=== PATIENT | male | born 1955 | race Two or more races ===

== ENCOUNTER → 2016-10-29 | Outpatient (CLI) | payer OTHER, MEDICAID | LOC: CIMAGING 17:00 | PROVIDERS: ATTEND Family Medicine | DX: R10.12 Left upper quadrant pain (principal); R31.9 Hematuria, unspecified | CPT/HCPCS: 74022-PO; 80053-PO; 85025-PO ==

== ENCOUNTER 2017-10-24 00:02 | Emergency (ER) | payer OTHER, MEDICAID ==
--- NOTE | 2017-10-24 00:32 | EDPHY ---
H & P Time Seen by Provider: 10/24/17 00:16 HPI/ROS: CHIEF COMPLAINT: [tooth ache] HISTORY OF PRESENT ILLNESS: [ ] P Q R S T Discharge Trismus Trauma REVIEW OF SYSTEMS: Gen: No fevers or chills. Respiratory: No cough, no dyspnea. Smoking Status: Never smoked Physical Exam: General: Well-developed well-nourished. Nontoxic. HEENT: Membranes moist. No foul odor. There is no trismus. There is no drainage within the mouth nor pointing at the alveolar ridge. . There is [no discernible ] [moderate] [extensive] dental decay. Submandibular adenopathy [is] [is not] noted. Constitutional: Initial Vital Signs Temperature (C) 36.9 C 10/24/17 00:05 Heart Rate 59 L 10/24/17 00:05 Respiratory Rate 16 10/24/17 00:05 Blood Pressure 161/100 H 10/24/17 00:05 O2 Sat (%) 96 10/24/17 00:05 O2 Delivery Mode Room Air Allergies/Adverse Reactions: No Known Allergies Allergy (Verified 10/24/17 00:21) Home Medications: Medication Instructions Recorded Aspirin [Aspir 81] 06/20/12 Lisinopril/Hctz 20/12.5MG 06/20/12 [Zestoretic/Prinzide 20/12.5MG (*)] Omeprazole 40 mg PO 06/20/12 AMOXICILLIN 10/24/17 Atorvastatin Calcium 10/24/17 Hydrocodone-Acetamin 2.5-325 10/24/17
[2017-10-24] MEDS ORDERED: NS 1,000 ML IV ONE (00:52)
[2017-10-24] MEDS ORDERED: OXYCODONE/APAP 5/325 TAB PO ONE (00:55)
[2017-10-24] MEDS ORDERED: ONDANSETRON 4 MG/2 ML VIAL IVP ONE (00:55)
--- NOTE | 2017-10-24 01:07 | CPEKG ---
Heart Rate: 69 RR Interval: 870 P-R Interval: 208 QRSD Interval: 78 QT Interval: 364 QTC Interval: 390 P [place]: 51 QRS [place]: 52 T Wave [place]: 32 EKG Severity - NORMAL ECG - EKG Impression: SINUS RHYTHM Electronically Signed By: Reji Thurman 24-Oct-2017 02:00:08
--- NOTE | 2017-10-24 01:29 | EDPHY ---
H & P Stated Complaint: Pain R side jaw area, has temp crown. Weakness with low BP. Time Seen by Provider: 10/24/17 00:16 HPI/ROS: CHIEF COMPLAINT: Tooth ache, dental pain, and weakness with hypotension. HISTORY OF PRESENT ILLNESS: This is a 62-year-old male with known underlying borderline diabetes with upon chart review his A1c will run between 6.1 is 6.3. Furthermore, he has had history of mild anemia with a hemoglobin approximately 13 for the last 5 years. He is here because his right cheek and facial area is becoming worse instead of better despite seen a dentist and he feels generally unwell and weak. Approximately 3 weeks ago he started having right upper dental pain. Was seen by a dentist and had a 2 stage crown placed. However with a crown placed he started feeling quite a bit worse and had more pain. Thus the crown was removed , a temporary filling was placed, and he was started on antibiotics as of October 19, amoxicillin. Also, since the been on hydrocodone 1 tablet every 6 hr. Furthermore he is taking his ibuprofen 400 mg daily. On these meds he is stomach is felt unwell and has no appetite. Approximately midnight on the , he felt particularly weak and had a lay on the floor. His checked his blood pressure and it was 85. He had no associated chest pain or shortness of breath diaphoresis vomiting hematemesis or bright red blood per rectum. This subsided over period of time and thus, he has been going along for the last 2 days with overall decreased intake of both p.o. solids and liquid. Discharge none Trismus none Trauma no P worse with cold or hot liquids or air Q Sharp R to the cheek on the L radiating along the mandible S moderate to severe, poor sleep T started 3 weeks ago, worse this week, no better on Amoxicillin. Pt queried and denies: No prior history of substance abuse, family history of substance abuse or current or prior psychiatric history. [place] Prescription Drug Monitoring Program checked: The only entry was that of October 19 for hydrocodone 16. He has 5 left. REVIEW OF SYSTEMS: Constitutional: No fever, no chills. Eyes: No discharge No diplopia ENT: No sore throat. Cardiovascular: No chest pain, no palpitations. Respiratory: No cough, shortness of breath, or wheezing. Gastrointestinal: No nausea vomiting or diarrhea. No abdominal pain. Genitourinary: No hematuria or frequency. Musculoskeletal: No back pain. Skin: No rashes. Neurological: No headache. 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 - Family History Significant Family History: No pertinent family hx - Social History Smoking Status: Never smoked Alcohol Use: None Drug Use: None - Physical Exam Exam: General Appearance: Alert, no distress. Afebrile. Normal phonation. No respiratory distress. He appears weak Eyes: Pupils equal and round no pallor or injection. No icterus ENT, Mouth: Mucous membranes slightly dry Pharynx without erythema or exudate. HEENT: Membranes moist. No foul odor. There is no trismus. There is no drainage within the mouth nor pointing at the alveolar ridge. . There is moderate dental decay. Submandibular adenopathy is noted, on the left. There is some mild soft tissue swelling present over the zygoma. The extraocular muscles are intact he reports no diplopia. There is a cap over the 1st molar on the left upper. There is no pointing to the alveolar ridge nor erythema Neck: No adenopathy. Supple. No JVD. Trachea in midline. Respiratory: There are no retractions, lungs are clear to auscultation. Chest wall: Nontender to palpation. No crepitus. Cardiovascular: Regular rate and rhythm, no murmur Abdomen: Soft and nontender, no masses, bowel sounds normal. Neurological: Ox3. No motor weakness. Sensation intact. Gait nl. Skin: Warm and dry, no rashes. Musculoskeletal: No joint swelling. Extremities: No edema. Homans sign negative. No cords. Psychiatric: Normal affect. Patient is oriented X 3. There is no agitation Constitutional: Initial Vital Signs Temperature (C) 36.9 C 10/24/17 00:05 Heart Rate 59 L 10/24/17 00:05 Respiratory Rate 16 10/24/17 00:05 Blood Pressure 161/100 H 10/24/17 00:05 O2 Sat (%) 96 10/24/17 00:05 O2 Delivery Mode Room Air Allergies/Adverse Reactions: No Known Allergies Allergy (Verified 10/24/17 00:21) Home Medications: Medication Instructions Recorded Aspirin [Aspir 81] 06/20/12 Lisinopril/Hctz 20/12.5MG 06/20/12 [Zestoretic/Prinzide 20/12.5MG (*)] Omeprazole 40 mg PO 06/20/12 AMOXICILLIN 10/24/17 Atorvastatin Calcium 10/24/17 Clindamycin HCl [Clindamycin] 300 mg PO QID #40 cap 10/24/17 Docusate Sodium [Colace 100 MG (*)] 100 mg PO BID #20 cap 10/24/17 Hydrocodone-Acetamin 2.5-325 10/24/17 Ibuprofen 600 mg PO TID #45 capsule 10/24/17 oxyCODONE HCL/ACETAMINOPHEN 1 - 2 each PO Q6 PRN #20 tablet 10/24/17 [Percocet 5-325 mg Tablet] Medical Decision Making - Diagnostics EKG Interpretation: EKG interpretation: See trace master for official reading. The EKG is sinus rhythm with a heart rate of 69 with no signs of ischemic changes with normal ST and T segments. ED Course/Re-evaluation: I suspect this pain is quite dehydrated from the [place] of the hydrocodone in induced nausea and anorexia as well as general feeling on well and not taking fluids like he should. I also suspect that his borderline diabetes is more problematic at this time due to stress with his sugar ultimately at 170 tonight , thus he is having a bit of diuresis that fashion. Thus, he was started on IV fluids for rehydration purposes. His EKG did not show any signs of ischemic changes. Electrolytes were stable as well as renal function however is borderline anemia in the past is now worse and deserves explanation. Thus, we will go ahead and get a formal CBC to get any idea of indices with subsequent further workup by his PCP. The stool guaiac suggests He was given Zofran 4 mg IVP for his Nausea/Anorexia. He received NS for volume deletion. He received Percocet 2 tabs for the pain. However, he was still in a lot of pain despite Percocet 2 tablets p.o.. We start him on the clindamycin here. I am afraid it is going to take a while for these medicines to catch up to his underlying process as well as they may need to have that tooth uncovered. He is to call the dentist tomorrow Wednesday morning. He will be switched to: Clindamycin Percocet And I will add: Valentine Differential Diagnosis: Diagnostic considerations include, but are not limited to, the following: Abscess, facial abscess, facial cellulitis, Neal's Angina, Retropharyngeal abscess, deep space facial infection, dental caries, dehydration, anemia, ACS, electrolyte abnormality. - Data Points Laboratory Results: Laboratory Results 10/24/17 01:30 10/24/17 10/24/17 10/24/17 01:30 01:23 01:23 WBC 8.93 10^3/uL 10^3/uL (3.80-9.50) RBC 4.10 10^6/uL L 10^6/uL (4.40-6.38) Hgb 12.1 g/dL L g/dL (13.7-17.5) POC Hgb 11.6 gm/dL L gm/dL (13.7-17.5) Hct 35.3 % L % (40.0-51.0) POC Hct 34 % L % (40-51) MCV 86.1 fL fL (81.5-99.8) MCH 29.5 pg pg (27.9-34.1) MCHC 34.3 g/dL g/dL (32.4-36.7) RDW 13.2 % % (11.5-15.2) Plt Count 204 10^3/uL 10^3/uL (150-400) MPV 11.4 fL fL (8.7-11.7) Neut % (Auto) 81.8 % H % (39.3-74.2) Lymph % (Auto) 12.3 % L % (15.0-45.0) [place] % (Auto) 4.9 % % (4.5-13.0) Eos % (Auto) 0.7 % % (0.6-7.6) Baso % (Auto) 0.1 % L % (0.3-1.7) Nucleat RBC Rel Count 0.0 % % (0.0-0.2) Absolute Neuts (auto) 7.30 10^3/uL H 10^3/uL (1.70-6.50) Absolute Lymphs (auto) 1.10 10^3/uL 10^3/uL (1.00-3.00) Absolute Monos (auto) 0.44 10^3/uL 10^3/uL (0.30-0.80) Absolute Eos (auto) 0.06 10^3/uL 10^3/uL (0.03-0.40) Absolute Basos (auto) 0.01 10^3/uL L 10^3/uL (0.02-0.10) Absolute Nucleated RBC 0.00 10^3/uL 10^3/uL (0-0.01) Immature Gran % 0.2 % % (0.0-1.1) Immature Gran # 0.02 10^3/uL 10^3/uL (0.00-0.10) POC Sodium 138 mEq/L mEq/L 138 mEq/L mEq/L (135-145) (135-145) POC Potassium 3.7 mEq/L mEq/L 3.8 mEq/L mEq/L (3.3-5.0) (3.3-5.0) POC Chloride 102.0 mEq/L mEq/L 101 mEq/L mEq/L (97-110) (97-110) POC Total CO2 26 mEq/L mEq/L (22-31) POC BUN 10 mg/dL mg/dL 11 mg/dL mg/dL (7-23) (7-23) POC Creatinine 0.9 mg/dL mg/dL 0.9 mg/dL mg/dL (0.7-1.3) (0.7-1.3) POC Glucose 169 mg/dL H mg/dL 173 mg/dL H mg/dL (70-100) (70-100) POC Calcium 8.8 mg/dL mg/dL (8.5-10.4) Medications Given: Discontinued Medications Hydrocodone Bitart/Acetaminophen ([place] 5/325mg Prepack#6) 1 btl TAKEHOME EDNOW ONE Stop: 10/24/17 01:55 Last Admin: 10/24/17 02:37 Dose: 1 btl Clindamycin (Cleocin 150 Mg Prepack#6) 1 btl TAKEHOME EDNOW ONE PRN Reason: Protocol Stop: 10/24/17 01:55 Last Admin: 10/24/17 02:36 Dose: 1 btl Sodium Chloride (Ns) 1,000 mls @ 0 mls/hr IV EDNOW ONE; As Directed PRN Reason: Protocol Stop: 10/24/17 00:53 Last Admin: 10/24/17 01:12 Dose: 1,000 mls Ondansetron HCl (Zofran) 4 mg IVP ONCE ONE Stop: 10/24/17 00:56 Last Admin: 10/24/17 01:12 Dose: 4 mg Ondansetron HCl (Zofran Odt 4 Mg Prepack#2) 1 btl TAKEHOME EDNOW ONE Stop: 10/24/17 01:55 Last Admin: 10/24/17 02:35 Dose: 1 btl Oxycodone/Acetaminophen (Percocet 5/325) 2 tab PO EDNOW ONE Stop: 10/24/17 00:56 Last Admin: 10/24/17 01:13 Dose: 2 tab Point of Care Test Results: Chemistry 10/24/17 10/24/17 01:23 01:23 POC Sodium 138 mEq/L mEq/L 138 mEq/L mEq/L (135-145) (135-145) POC Potassium 3.7 mEq/L mEq/L 3.8 mEq/L mEq/L (3.3-5.0) (3.3-5.0) POC Chloride 102.0 mEq/L mEq/L 101 mEq/L mEq/L (97-110) (97-110) POC Total CO2 26 mEq/L mEq/L (22-31) POC BUN 10 mg/dL mg/dL 11 mg/dL mg/dL (7-23) (7-23) POC Creatinine 0.9 mg/dL mg/dL 0.9 mg/dL mg/dL (0.7-1.3) (0.7-1.3) POC Glucose 169 mg/dL H mg/dL 173 mg/dL H mg/dL (70-100) (70-100) POC Calcium 8.8 mg/dL mg/dL (8.5-10.4) ISTAT H&H 10/24/17 01:23 POC Hgb 11.6 gm/dL L gm/dL (13.7-17.5) POC Hct 34 % L % (40-51) Occult Blood Occult Blood Collection Date 10/24/17 Occult Blood Collection Time 02:30 Occult Blood Result Negative/Negative Departure - Departure Disposition: Home, Routine, Self-Care Clinical Impression: Pain, dental, Dental abscess, Dehydration, Near syncope Anemia Qualifiers: Anemia type: unspecified type Qualified Code(s): D64.9 - Anemia, unspecified Condition: Good Instructions: Clindamycin (By mouth), Hydrocodone/Acetaminophen (By mouth), Ondansetron (By mouth), Dehydration (ED), Dental Abscess (ED) Additional Instructions: Stop the: Hydrocodone Amoxicillin New Meds: Clindamycin Oxycodone # Zofran Ibuprofen 200mg, 3 capsules three times a day as needed for inflammation. Extra fluids = make this a combination of water and Gatorade, low calorie. You need to call the dentist in the morning, on Wednesday. They may need to see you on Wednesday, depending how the medications work in the next 8-12 hours. Also, you are anemic and the blood glucose is getting high. You should see your family doctor for a recheck on these medical problems in 1-2 weeks. Referrals: NONE *PRIMARY CARE P,. [Primary Care Provider] - As per Instructions Prescriptions: Clindamycin HCl [Clindamycin] 300 mg PO QID #40 cap Docusate Sodium [Colace 100 MG (*)] 100 mg PO BID #20 cap Ibuprofen 600 mg PO TID #45 capsule oxyCODONE HCL/ACETAMINOPHEN [Percocet 5-325 mg Tablet] 1 - 2 each PO Q6 PRN #20 tablet PRN Reason: moderate to severe pain
[2017-10-24] MEDS ORDERED: ONDANSETRON 4MG PREPACK#2 BTL TAKEHOME ONE (01:54)
[2017-10-24] MEDS ORDERED: HYDROCOD/APAP 5/325 PREPACK#6 BTL TAKEHOME ONE (01:54)
[2017-10-24] MEDS ORDERED: CLINDAMYCIN 150MG PREPACK#6 BTL TAKEHOME ONE (01:54)
[2017-10-24 03:00] LABS: PLATELET COUNT 204 10^3/uL (150-400)
[2017-10-24 03:13] VITALS: BP 142/84
== END 2017-10-24 03:35 | disposition home or self-care (01) ==
LOC: CED 00:02
DX: K04.7 Periapical abscess without sinus (principal); E86.0 Dehydration; D64.9 Anemia, unspecified; R55 Syncope and collapse; E86.9 Volume depletion, unspecified; I10 Essential (primary) hypertension; Z79.82 Long term (current) use of aspirin
CPT/HCPCS: 93005; 96374; 99284; J2405; 80048-PO; 82435-PO; 82565-PO; 82947-PO; 84132-PO; 84295-PO; 84520-PO; 85014-PO

== ENCOUNTER → 2017-12-23 | Outpatient (CLI) | payer OTHER, MEDICAID | LOC: CIMAGING 08:22 | PROVIDERS: ATTEND Family Medicine | DX: M25.521 Pain in right elbow (principal); M25.421 Effusion, right elbow; M24.821 Other specific joint derangements of right elbow, not elsewhere classified | CPT/HCPCS: 73080-PO ==

== ENCOUNTER → 2018-07-12 | Outpatient (CLI) | payer OTHER, MEDICAID | LOC: CIMAGING 16:41 | PROVIDERS: ATTEND Family Medicine | DX: J45.909 Unspecified asthma, uncomplicated (principal) | CPT/HCPCS: 71046-PO ==